=== PATIENT | male | born 1960 | race Caucasian/White ===

== ENCOUNTER 2019-08-19 13:43 | Observation (INO) ==
[2019-08-19] MEDS ORDERED: NITROGLYCERIN 2% OINT 1 INCH/GM PACK TOP ONE (14:29)
[2019-08-19] MEDS ORDERED: ASPIRIN CHEW 81 MG TABLET PO STA (14:29)
[2019-08-19] MEDS ORDERED: NITROGLYCERIN 2% OINT 1 INCH/GM PACK TOP STA (14:29)
[2019-08-19 14:54] LABS: Albumin 3.9 G/DL (3.4-5.0); Bilirubin,Total 0.6 MG/DL (0.2-1.0); Calcium 9.4 MG/DL (8.5-10.1); Osmolality,Calculated 272.7 MOS/KG (273-304); Total Protein 7.7 G/DL (6.4-8.3)
[2019-08-19] MEDS ORDERED: TICAGRELOR 90 MG TABLET PO STA (15:39)
[2019-08-19] MEDS ORDERED: POTASSIUM CHLORIDE 20 MEQ TABLET PO PRN (15:54)
[2019-08-19] MEDS ORDERED: MAGNESIUM SULF RIDER 2 GM in PREMIX 1 EACH IV PRN (15:54)
[2019-08-19] MEDS ORDERED: BISACODYL 5 MG TABLET PO PRN (15:54)
[2019-08-19] MEDS ORDERED: ZALEPLON 5 MG CAPSULE PO PRN (15:54)
[2019-08-19] MEDS ORDERED: ONDANSETRON 4 MG/2 ML VIAL IV PRN (15:54)
[2019-08-19] MEDS ORDERED: MAGNESIUM SULF RIDER 4 GM in PREMIX 1 EACH IV PRN (15:54)
[2019-08-19] MEDS ORDERED: MORPHINE 4 MG/1 ML VIAL IV PRN (15:54)
[2019-08-19] MEDS ORDERED: ACETAMINOPHEN 325 MG TABLET PO PRN (15:54)
[2019-08-19 16:26] LABS: Basophils # 0.1 10*3/uL (0.0-0.2); Basophils % 1.8 % (0.0-0.8); Eosinophils # 0.8 10*3/uL (0.0-0.87); Eosinophils % 10.8 % (0.00-10.9); Hematocrit 42.8 VOL% (42.0-52.0); Hemoglobin 14.3 GM/DL (14.0-18.0); Immature Granulocytes % 0.3 %; Immature Granulocytes Absolute 0.02 #; Lymphocytes # 1.6 10*3/uL (1.4-4.0); Lymphocytes % 21.8 % (21.2-54.2); Mean Corpuscular HGB Conc 33.4 GM/DL (32-36); Mean Corpuscular Volume 90.7 FL (87-102); Mean Platelet Volume 9.1 FL (9.6-12.0); Neutrophils % 57.3 % (38.7-73.9); Platelet Count 250 T/CUMM (130-400); Red Blood Count 4.72 MC/CUMM (3.8-5.5); Red Cell Distribution Width 13.2 % (9.3-17.3); White Blood Count 7.4 T/CUMM (4-12)
[2019-08-19] MEDS ORDERED: NITROGLYCERIN SL 0.4 MG TABLET SL PRN (17:37)
[2019-08-19 18:41] LABS: Troponin I < 0.015 NG/ML (0.00-0.045)
[2019-08-19 19:49] LABS: Troponin I < 0.015 NG/ML (0.00-0.045)
[2019-08-19] MEDS: TICAGRELOR 90 MG TABLET PO SCH (20:43)
[2019-08-19] MEDS ORDERED: ROSUVASTATIN 20 MG TABLET PO SCH (21:00)
[2019-08-19] MEDS ORDERED: ENOXAPARIN 40 MG/0.4 ML SYRINGE SUBCUT SCH (21:00)
[2019-08-19] MEDS ORDERED: ASPIRIN EC 81 MG TABLET PO SCH (21:00)
[2019-08-19 22:14] LABS: Troponin I < 0.015 NG/ML (0.00-0.045)
[2019-08-20 05:32] LABS: Basophils # 0.2 10*3/uL (0.0-0.2); Basophils % 2.1 % (0.0-0.8); Eosinophils # 1.1 10*3/uL (0.0-0.87); Eosinophils % 16.2 % (0.00-10.9); Hematocrit 40.8 VOL% (42.0-52.0); Hemoglobin 13.5 GM/DL (14.0-18.0); Immature Granulocytes % 0.1 %; Immature Granulocytes Absolute 0.01 #; Lymphocytes # 1.7 10*3/uL (1.4-4.0); Lymphocytes % 24.3 % (21.2-54.2); Mean Corpuscular HGB Conc 33.1 GM/DL (32-36); Mean Corpuscular Volume 92.7 FL (87-102); Mean Platelet Volume 9.4 FL (9.6-12.0); Monocytes % 10.2 % (1.7-12.7); Neutrophils % 47.1 % (38.7-73.9); Platelet Count 221 T/CUMM (130-400); Red Cell Distribution Width 13.2 % (9.3-17.3)
[2019-08-20 05:51] LABS: Calcium 8.8 MG/DL (8.5-10.1); Osmolality,Calculated 283.1 MOS/KG (273-304)
[2019-08-20 06:01] LABS: Atypical Lymphocytes Few; Band Neutrophils 2 % (0-10); Eosinophils 18 % (0-10); Hypochromasia Slight; Lymphocytes 21 % (20-55); Microcytosis Slight; Segmented Neutrophils 52 % (50-85); Total Cells Counted 100
[2019-08-20 06:02] LABS: Platelet Estimate Normal
[2019-08-20 08:25] VITALS: BP 107/60
[2019-08-20] MEDS ORDERED: PANTOPRAZOLE 40 MG TABLET PO SCH (09:00)
[2019-08-20] MEDS: TICAGRELOR 90 MG TABLET PO SCH (09:22)
== END 2019-08-20 11:48 | disposition home or self-care (01) ==
LOC: N.EDINP 13:43 → N.ED 13:43 → N.TELEN 17:39
PROVIDERS: ADMIT Internal Medicine Cardiovascular Disease; ATTEND Internal Medicine Cardiovascular Disease